=== PATIENT | male | born 2000 | race Caucasian/White ===

== ENCOUNTER 2020-09-28 20:43 | Emergency (ER) | payer SELFPAY ==
[~2020-09-28] VITALS: Ht 182.9 cm; Wt 113.6 kg
[2020-09-28 23:18] VITALS: BP 140/90
== END 2020-09-28 23:36 | disposition home or self-care (01) ==
LOC: ER 20:43
DX: Z03.818 Encounter for observation for suspected exposure to other biological agents ruled out (principal)
CPT/HCPCS: 93005; 99283; C9803; U0003